=== PATIENT | female | born 1965 | race Two or more races ===

== ENCOUNTER 2025-05-01 09:09 | Day surgery (SDC) | payer OTHER ==
[2025-04-23 13:56] VITALS: BP 110/74
[~2025-05-01] VITALS: Ht 152.4 cm; Wt 81.6 kg
[~2025-05-01 09:09] MED LIST: ANASTROZOLE1 MG; ATORVASTATIN CA40 MG; BISOPROLOL-HCT1 EACH; FAMOTIDINE 40MG; IRBESARTAN300 MG; PROLIA60 MG/1 ML; SYNTHROID88 MCG; [UNRECOGNIZED DRUG - OTHER]
[2025-05-01] MEDS ORDERED: METRONIDAZOLE/SODIUM CHLORIDE 500 MG/100 ML PIGGYBACK IV ONE (12:53)
[2025-05-01] MEDS ORDERED: CEFTRIAXONE SODIUM 2,000 MG VIAL ONE (12:53)
[2025-05-01] MEDS ORDERED: HEMOSTATIC MATRIX 1 KIT KIT TOP ONE (13:11)
[2025-05-01] MEDS ORDERED: BUPIVACAINE HCL/MPF 0.5% 30ML VIAL ONE (13:11)
[2025-05-01] MEDS ORDERED: LIDOCAINE HCL 1%/EPINEPHRINE 20ML VIAL IJ ONE (13:11)
[2025-05-01] MEDS ORDERED: DIBUCAINE 30 GM TUBE ONE (13:11)
[2025-05-01] MEDS ORDERED: POVIDONE-IODINE 118 ML BOTT TOP ONE (13:11)
[2025-05-01] MEDS ORDERED: FAMOTIDINE/PF 20 MG/2 ML VIAL ONE (14:12)
[2025-05-01] MEDS ORDERED: PERCOCET 5-3251 EACH PO (14:20)
[2025-05-01] MEDS ORDERED: RECTICARE30 GM TOP (14:21)
== END 2025-05-01 19:55 | disposition home or self-care (01) ==
LOC: CIR.AMB 09:09
PROVIDERS: ATTEND Surgery
DX: K60.1 Chronic anal fissure (principal); R19.5 Other fecal abnormalities